=== PATIENT | female | born 1985 | race Caucasian/White ===

== ENCOUNTER 2019-08-21 19:22 | Emergency (ER) | payer SELFPAY ==
[2019-08-21 19:34] VITALS: TEMP 97.1; O2SAT 100
[2019-08-21] MEDS ORDERED: LIDOCAINE 1% 2 ML VIAL INJ ONE (19:41)
--- NOTE | 2019-08-21 19:42 | ED.PDOC ---
History of Present Illness - General Time Seen by Provider: 08/21/19 19:38 Source: patient Exam Limitations: no limitations - History of Present Illness Initial Comments: the patient is a 33-year-old female presenting to the emergency room secondary to multiple dental caries, one of which on the upper left maxilla appears to have a significant infection. She has some mild swelling of the facial features. No definite fluctuant area to drain. Vital signs are stable. Symptoms have been going for about a week. She reports an allergy to hydrocodone but not Tylenol. No definite fevers. She does have significant discomfort. Timing/Duration: 1 week Severity: moderate Improving Factors: nothing Worsening Factors: eating Associated Symptoms: denies symptoms Allergies/Adverse Reactions: Allergies Hydrocodone Allergy (Mild, Verified 11/09/15 15:20) Hives Home Medications: Ambulatory Orders Cetirizine HCl [ZyrTEC] 10 mg PO DAILY #7 tab 11/09/15 Cephalexin Monohydrate [Keflex] 500 mg PO Q8H #30 cap 08/21/19 Tramadol HCl 50 mg PO Q8HR PRN #20 tab 08/21/19 Review of Systems - Review of Systems Constitutional: States: malaise EENTM: States: mouth pain Cardiology: States: no symptoms reported Gastrointestinal/Abdominal: States: no symptoms reported Genitourinary: States: no symptoms reported Musculoskeletal: States: no symptoms reported Skin: States: no symptoms reported Neurological: States: no symptoms reported Endocrine: States: no symptoms reported All other Systems: No Change from Baseline Past Medical History (General) - Vaccination History Hx Tetanus, Diphtheria Vaccination: No Hx Influenza Vaccination: No Hx Pneumococcal Vaccination: No - Social History Hx Tobacco Use: No - Female History Patient : - unknown Family Medical History - Family History Mother Living Status: Still Living Hx Family;Other: endometriosis, heart murmor Physical Exam - Physical Exam General Appearance: Alert, Comfortable, No apparent distress Eye Exam: bilateral normal Ears, Nose, Throat: hearing grossly normal, other - multiple dental caries. No definite abscess. 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 She is getting some mild facial swelling. no abscess to drain at this point. She was given a dose of Rocephin and clindamycin here. She will be written for Keflex as an outpatient for the next 10 days. She'll be written for tramadol for as needed use as well. Aleve or Motrin can be used additionally to reduce inflammation. ER warnings were given. Keep well hydrated. [email or web address] muñoz [id number] Departure - Departure Clinical Impression: Infected dental caries Disposition: Discharge to Home or Self Care Condition: Fair Instructions: Tooth Abscess (DC) Diet: regular diet Activity: increase activity as tolerated Referrals: LOAN COY [Primary Care Provider] - 1-2 Weeks Prescriptions: Tramadol HCl 50 mg PO Q8HR PRN #20 tab PRN Reason: Moderate Pain Cephalexin Monohydrate [Keflex] 500 mg PO Q8H #30 cap Home Medications: Ambulatory Orders Cetirizine HCl [ZyrTEC] 10 mg PO DAILY #7 tab 11/09/15 Cephalexin Monohydrate [Keflex] 500 mg PO Q8H #30 cap 08/21/19 Tramadol HCl 50 mg PO Q8HR PRN #20 tab 08/21/19 Additional Instructions: the patient is a 33-year-old female with infected dental caries. She is getting some mild facial swelling. no abscess to drain at this point. She was given a dose of Rocephin and clindamycin here. She will be written for Keflex as an outpatient for the next 10 days. She'll be written for tramadol for as needed use as well. Aleve or Motrin can be used additionally to reduce inflammation. ER warnings were given. Keep well hydrated.
[2019-08-21] MEDS: ACETAMINOPHEN-CAFF-BUTALBITAL 1 EA TAB PO ONE (19:43)
[2019-08-21] MEDS: CLINDAMYCIN HCL CAP 150 MG CAP PO ONE (19:43)
[2019-08-21] MEDS: cefTRIAXone SODIUM 1 GM VIAL IM ONE (19:43)
[2019-08-21 20:05] VITALS: BP 121/82
== END 2019-08-21 20:06 | disposition home or self-care (01) ==
LOC: ER 19:22
DX: K04.7 Periapical abscess without sinus (principal); K02.9 Dental caries, unspecified; Z88.5 Allergy status to narcotic agent